=== PATIENT | female | born 1990 | race Hispanic/Latino ===

== ENCOUNTER 2025-04-18 21:58 | Emergency (ER) | payer SELFPAY ==
[~2025-04-18] VITALS: Ht 157.5 cm; Wt 104.3 kg
[2025-04-18 22:29] LABS: BASOPHILS # (AUTO) 0.04 K/uL (0.00-0.20); BASOPHILS % (AUTO) 0.4 % (0.0-5.0); EOSINOPHILS # (AUTO) 0.23 K/uL (0.00-0.70); EOSINOPHILS % (AUTO) 2.3 % (0.0-8.0); HEMATOCRIT 37.9 % (36-48); IMMATURE GRANULOCYTE ABSOLUTE 0.05 K/uL (0-1); LYMPHOCYTES # (AUTO) 2.9 K/uL (1.0-4.8); LYMPHOCYTES % (AUTO) 29.4 % (21.0-51.0); MEAN CORPUSCULAR HEMOGLOBIN 27.9 pg (27.0-33.0); MEAN CORPUSCULAR HGB CONC 32.7 g/dL (32.0-36.0); MEAN CORPUSCULAR VOLUME 85.2 fL (79-99); MONOCYTES # (AUTO) 0.3 K/uL (0.1-1.0); MONOCYTES % (AUTO) 3.5 % (3.0-13.0); NEUTROPHILS # (AUTO) 6.3 K/uL (1.8-7.7); NEUTROPHILS % (AUTO) 63.9 % (40.0-77.0); PLATELET COUNT (AUTO) 294 K/uL (130-400); RED BLOOD CELL COUNT(AUTO) 4.45 MIL/uL (4.00-5.50); RED CELL DISTRIBUTION WIDTH 13.5 % (11.0-15.5); WHITE BLOOD COUNT (AUTO) 9.8 K/uL (4.8-10.8)
[2025-04-18 22:38] LABS: APPEARANCE,URINE CLEAR (CLEAR); BILIRUBIN,URINE NEGATIVE (NEGATIVE); COLOR,URINE COLORLESS (YELLOW); GLUCOSE, URINE (UA) NEGATIVE (NEGATIVE); KETONES,URINE NEGATIVE (NEGATIVE); LEUKOCYTE ESTERASE ,URINE NEGATIVE Leu/uL (NEGATIVE); NITRATE,URINE NEGATIVE (NEGATIVE); OCCULT BLOOD,URINE NEGATIVE (NEGATIVE); PROTEIN,URINE NEGATIVE (NEGATIVE); UROBILINOGEN,URINE 0.2 mg/dL (0.2-1.0)
[2025-04-18 22:40] LABS: CREATININE 0.6 mg/dL (0.5-1.0); POTASSIUM 3.7 mmol/L (3.5-5.1)
[2025-04-18] MEDS: acetaMINOPHEN 500 MG TABLET PO ONE (22:41)
[2025-04-18 22:44] LABS: ADD UA MICROSCOPIC NO
--- NOTE | 2025-04-18 23:09 | HMCIMG ---
US OB <14 WEEKS HISTORY: Back pain COMPARISON: None TECHNIQUE: Obstetrical ultrasound study was performed. FINDINGS: The uterus measures 11.2 x 8.2 x 6 centimeter. Right ovary measures 3.2 x 2.1 x 3.7 centimeter. Left ovary measures 3 x 1.9 x 2.7 centimeter. There is intrauterine saclike structure. In a patient with positive test, differential diagnosis would include early versus ectopic versus missed . Estimated gestational age by sac size is 4 weeks and 4 days. Beta hCG correlation is recommended.. No pole or sac is seen. No fluid is seen in the cul-de-sac. IMPRESSION: 1. There is intrauterine saclike structure. In a patient with positive test, differential diagnosis would include early versus ectopic versus missed . Estimated gestational age by sac size is 4 weeks and 4 days. Beta hCG correlation is recommended..
--- NOTE | 2025-04-18 23:19 | ERN ---
ED Note History of Present Illness Stated Complaint: C/O LOWER BACK PAIN ; 10 WKS Chief Complaint: Back Pain-No Injury Time Seen by MD: 22:21 Dictation: Patient is a 34-year-old female morbid obesity who presented to the ER due to back pain localized in the middle of her back. She also mentioned that she had 1 miscarriage January 2025, and recently she became again, she was told that she was of 7 weeks. Patient comes to the ER to make sure that all her is okay Allergies: Coded Allergies: No Known Drug Allergies (Verified Allergy, 02/07/13) Past Medical History Past Medical History: Diabetes-Type II Surgical History: : 4 Para: 2 Aborts: 1 Review of System Dictation NEGATIVE EXCEPT PER HPI Constitutional: Negative for fever,chills, and weight loss Eyes: Negative for injury, pain,redness, and discharge ENT: Negative for injury,pain or swelling Cardiovascular: denies chest pain, palpitations, and edema Respiratory: Negative for shortness of breath, cough, and wheezing, Abdomen/GI: Negative for abdominal pain, nausea, vomiting, diarrhea, and const ipation Back: Negative for injury and pain : Negative for injury, bleeding and discharge MS/Extremity: Negative for injury and deformity, reports a middle back pain Skin: Negative for rash, and discoloration Neuro: Negative for headache, weakness, numbness, tingling, and seizure Psych: Negative for suicide ideation, homicidal ideation, and hallucinations Initial Vital Sign VS Vital Signs Date Time Temp Pulse Resp B/P (MAP) Pulse Ox O2 Delivery O2 Flow Rate FiO2 04/18/25 22:03 97.5 91 20 130/72 100 Room Air 04/18/25 22:15 0 21 Physical Exam Dictation General: awake, alert, NAD Head/Face: Normocephalic, atraumatic Eyes: PERRL, EOMI, vision at baseline ENT: oral cavity clear, TMs clear, no signs of infection Neck: Trachea midline, supple, no nuchal rigidity Cardiovascular: RRR, normal S1/S2, No MRGs, no JVD Respiratory: CTAB, no respiratory distress, No rales or wheezes Abdomen: Soft , no tender Skin: Warm, dry, normal turgor, no rash MS/Extremity: Pulses equal, no cyanosis, neurovascular intact, FROM Neuro: COAx4, GCS 15, strength 5/5, CN 2-12 intact, normal cerebellar exam, normal gait, Psych: Normal behavior, mood, and affect normal Results (Laboratory/Radiology) Laboratory/Radiology Laboratory Tests Test 04/18/25 22:15 04/18/25 22:23 Urine Color COLORLESS (YELLOW) Urine Appearance CLEAR (CLEAR) Urine pH 7.0 (5.0-8.0) Urine Specific [place] 1.004 (1.001-1.031) Urine Protein NEGATIVE mg/dL (NEGATIVE) Urine Glucose (UA) NEGATIVE mg/dL (NEGATIVE) Urine Ketones NEGATIVE mg/dL (NEGATIVE) Urine Occult Blood NEGATIVE (NEGATIVE) Urine Nitrate NEGATIVE (NEGATIVE) Urine Bilirubin NEGATIVE mg/dL (NEGATIVE) Urine Urobilinogen 0.2 mg/dL (0.2-1.0) Urine Leukocyte Esterase NEGATIVE Cristofer/uL Urine HCG, Qualitative POSITIVE (NEGATIVE) H White Blood Count 9.8 K/uL (4.8-10.8) Red Blood Count 4.45 MIL/uL (4.00-5.50) Hemoglobin 12.4 g/dL (12.0-16.0) Hematocrit 37.9 % (36-48) Mean Corpuscular Volume 85.2 fL (79-99) Mean Corpuscular Hemoglobin 27.9 pg (27.0-33.0) Mean Corpuscular Hemoglobin Concent 32.7 g/dL (32.0-36.0) Red Cell Distribution Width 13.5 % (11.0-15.5) Platelet Count 294 K/uL (130-400) Mean Platelet Volume 10.1 fL (7.5-10.5) Immature Granulocyte % (Auto) 0.5 % (0-1) Neutrophils (%) (Auto) 63.9 % (40.0-77.0) Lymphocytes (%) (Auto) 29.4 % (21.0-51.0) Monocytes (%) (Auto) 3.5 % (3.0-13.0) Eosinophils (%) (Auto) 2.3 % (0.0-8.0) Basophils (%) (Auto) 0.4 % (0.0-5.0) Neutrophils # (Auto) 6.3 K/uL (1.8-7.7) Lymphocytes # (Auto) 2.9 K/uL (1.0-4.8) Monocytes # (Auto) 0.3 K/uL (0.1-1.0) Eosinophils # (Auto) 0.23 K/uL (0.00-0.70) Basophils # (Auto) 0.04 K/uL (0.00-0.20) Absolute Immature Granulocyte (auto 0.05 K/uL (0-1) Nucleated Red Blood Cells 0.0 % (0.0-0.19) Sodium Level 139 mmol/L (136-145) Potassium Level 3.7 mmol/L (3.5-5.1) Chloride Level 104 mmol/L (101-111) Carbon Dioxide Level 28 mmol/L (21-32) Blood Urea Nitrogen 10 mg/dL (7-18) Creatinine 0.6 mg/dL (0.5-1.0) Glomerular Filtration Rate Calc 119 mL/min (>90) Random Glucose 107 mg/dL (70-105) H Total Calcium 9.1 mg/dL (8.5-10.1) Human Chorionic Gonadotropin, Quant 12034 mIU/mL (0-5) H ED Course ED Course Orders Procedure Category Date Status Time Urinalysis Profile LAB 04/18/25 Complete 22:12 ,Urine Test LAB 04/18/25 Complete 22:12 Cbc With Differential LAB 04/18/25 Complete 22:15 Basic Metabolic Panel LAB 04/18/25 Complete 22:15 Hcg,Quantitative LAB 04/18/25 Complete 22:15 Us Ob <14 Weeks US 04/18/25 Resulted 22:15 Acetaminophen 500mg PHA 04/18/25 Complete Tab (Tylenol 500mg T 23:00 Current Medications Medications (Trade) Dose Ordered Sig/Mervin Route PRN Reason Start Time Stop Time Status Last Admin Dose Admin Acetaminophen (TYLenol 500MG TAB) 500 mg ONCE ONCE PO 04/18/25 23:00 04/18/25 23:01 DC 04/18/25 22:41 Vital Signs Date Time Temp Pulse Resp B/P (MAP) Pulse Ox O2 Delivery O2 Flow Rate FiO2 04/18/25 22:15 97.9 92 18 130/45 100 Room Air* 0 21 04/18/25 22:03 97.5 91 20 130/72 100 Room Air Medical Decision Making MDM 34-year-old female with a history of 7 weeks of came to the ER due to back pain. Denies fever or chills. No urinary symptoms. No hematuria. No vaginal bleeding. workup, including ultrasound. hcg [id number] US OB <14 WEEKS HISTORY: Back pain COMPARISON: None TECHNIQUE: Obstetrical ultrasound study was performed. FINDINGS: The uterus measures 11.2 x 8.2 x 6 centimeter. Right ovary measures 3.2 x 2.1 x 3.7 centimeter. Left ovary measures 3 x 1.9 x 2.7 centimeter. There is intrauterine saclike structure. In a patient with positive test, differential diagnosis would include early versus ectopic versus missed . Estimated gestational age by sac size is 4 weeks and 4 days. Beta hCG correlation is recommended.. No pole or sac is seen. No fluid is seen in the cul-de-sac. IMPRESSION: 1. There is intrauterine saclike structure. In a patient with positive test, differential diagnosis would include early versus ectopic versus missed . Estimated gestational age by sac size is 4 weeks and 4 days. Beta hCG correlation is recommended.. PATIENT MUST FOLLOW UP WITH HER PCP NO ACUTE FINDINGS FOUND ON THE LABS OR IN THE OBSTETRICAL ULTRASOUND. DX & DISP Disposition: Discharge Departure Impression: Primary Impression: Additional Impression: Back pain Condition: Stable Scripts Acetaminophen (Tylenol) 500 Mg Tab 1 TAB PO Q6HPRN PRN for pain or fever for 5 Days, #20 TAB 0 Refills Prov: CRYSTAL ARITA MD 04/18/25 Additional Instructions: RETURN TO ER FOR ANY ACUTE OR WORSENING SYMPTOMS. FOLLOW-UP IN 1-2 DAYS WITH PRIMARY PROVIDER FOR RECHECK OF TODAY'S SYMPTOMS. Referrals: SELF,REFERRAL (PCP) CRYSTAL ARITA MD April 18, 2025 23:19
[2025-04-18] MEDS ORDERED: ACET-66 PO (23:59)
[2025-04-19 00:22] VITALS: BP 129/52; PULSE 86; RESP 18; TEMP 98.2; O2SAT 100
== END 2025-04-19 00:23 | disposition home or self-care (01) ==
LOC: EDH 21:58
DX: O26.891 Other specified pregnancy related conditions, first trimester (principal); M54.50 Low back pain, unspecified; R10.2 Pelvic and perineal pain; O24.111 Pre-existing type 2 diabetes mellitus, in pregnancy, first trimester; Z3A.10 10 weeks gestation of pregnancy; Z98.890 Other specified postprocedural states
CPT/HCPCS: 36415; 76801; 80048; 81003; 81025; 84702; 85025; 99284

== ENCOUNTER 2025-04-24 19:54 | Emergency (ER) | payer SELFPAY ==
[~2025-04-24 19:54] MED LIST: ACET-66 PO
--- NOTE | 2025-04-24 19:55 | NUR ---
CALLED FOR PT IN LOBBY FOR TRIAGE; NO RESPONSE; PT NOT FOUND IN LOBBY.
--- NOTE | 2025-04-24 20:15 | NUR ---
CALLED FOR PT IN LOBBY FOR TRIAGE; NO RESPONSE.
== END 2025-04-24 20:16 | disposition left against medical advice (07) ==
LOC: EDH 19:54
DX: O03.9 Complete or unspecified spontaneous abortion without complication (principal); Z53.21 Procedure and treatment not carried out due to patient leaving prior to being seen by health care provider

== ENCOUNTER 2025-06-09 21:36 | Emergency (ER) | payer MEDICAID ==
[~2025-06-09] VITALS: Ht 157.5 cm; Wt 106.6 kg
[2025-06-09 22:14] LABS: IMMATURE GRANULOCYTE ABSOLUTE 0.03 K/uL (0-1); NUCLEATED RED BLOOD CELLS 0.0 % (0.0-0.19); PLATELET COUNT (AUTO) 279 K/uL (130-400); RED BLOOD CELL COUNT(AUTO) 4.21 MIL/uL (4.00-5.50); RED CELL DISTRIBUTION WIDTH 14.6 % (11.0-15.5); WHITE BLOOD COUNT (AUTO) 7.6 K/uL (4.8-10.8)
[2025-06-09 22:23] LABS: CREATININE 0.7 mg/dL (0.5-1.0); GLOMERULAR FILTR. RATE CALC 115.0 mL/min (>90); GLUCOSE,RANDOM 107.0 mg/dL (70-105); SODIUM SERUM 141.0 mmol/L (136-145); UREA NITROGEN, BLOOD 13.0 mg/dL (7-18)
--- NOTE | 2025-06-09 22:30 | ERN ---
ED Note History of Present Illness Stated Complaint: HEAD INJURY, HEADACHE Chief Complaint: Head Injury Time Seen by MD: 21:41 Dictation: This is a 34-year-old female who presented to the emergency room complaining of left-sided frontal headache and injury to the head. Apparently they were trying to put up a canopy and 1 of the poles which is 4 in in diameter it fell and hit her head in the left frontal area on 06/07/2025. 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 She began experiencing headache in the area where she got injured and she came in for evaluation no nausea vomitings no dizziness. Patient apparently took Motrin 800 mg p.o. at 3:00 p.m. prior to ER visit. Temperature 98.8 pulse 96 respirations 20 blood pressure 131/68 with a pulse oximetry of 100% on room air Her chronic medical problem includes diabetes type 2 and morbid obesity with a BMI of 43 Allergies: Coded Allergies: No Known Drug Allergies (Verified Allergy, 02/07/13) Home Meds Active Scripts Ketorolac Tromethamine (Toradol) 10 Mg Tab, 10 MG PO QID for pain for 5 Days, #20 TAB 0 Refills Prov:CHARLINE BOYER MD 06/10/25 Acetaminophen (Tylenol) 500 Mg Tab, 1 TAB PO Q6HPRN PRN for pain or fever for 5 Days, #20 TAB 0 Refills Prov:CRYSTAL ARITA MD 04/18/25 Past Medical History Past Medical History: Diabetes-Type II Surgical History: Family History: Negative LMP: Jun 03, 2025 : 4 Para: 3 Aborts: 1 RN Note Reviewed/Agreed w/PFSH: Yes Review of System Dictation Constitutional: Negative for fever,chills, and weight loss Eyes: Negative for injury, pain,redness, and discharge ENT: Negative for injury,pain or swelling Cardiovascular: Negative for chest pain, palpitations, and edema Respiratory: Negative for shortness of breath, cough, and wheezing, Abdomen/GI: Negative for abdominal pain, nausea, vomiting, diarrhea, and constipation Back: Negative for injury and pain : Negative for injury, bleeding and discharge MS/Extremity: Negative for injury and deformity Skin: Negative for rash, and discoloration Neuro: Positive for frontal headache, denies weakness, numbness, tingling, and seizure Psych: Negative for suicide ideation, homicidal ideation, and hallucinations Initial Vital Sign VS Vital Signs Date Time Temp Pulse Resp B/P (MAP) Pulse Ox O2 Delivery O2 Flow Rate FiO2 06/09/25 21:37 98.8 96 20 131/68 100 Nasal Cannula Physical Exam Dictation General: awake, alert, NAD Head/Face: Normocephalic, atraumatic I do not appreciate any obvious lacerations, scalp hematoma or abrasions. Eyes: PERRL, EOMI, vision at baseline ENT: oral cavity clear, TMs clear, no signs of infection Neck: Trachea midline, supple, no nuchal rigidity Cardiovascular: RRR, normal S1/S2, No MRGs, no JVD Respiratory: CTAB, no respiratory distress, No rales or wheezes Abdomen: Soft, non-tender, non-distended, normal bowel sounds, no guarding or rebound. Skin: Warm, dry, normal turgor, no rash MS/Extremity: Pulses equal, no cyanosis, neurovascular intact, FROM Neuro: COAx4, GCS 15, strength 5/5, CN 2-12 intact, normal cerebellar exam, normal gait, Psych: Normal behavior, mood, and affect normal Extremities-trace edema without any palpable cords, Homans sign is negative Results (Laboratory/Radiology) Laboratory/Radiology Laboratory Tests Test 06/09/25 22:07 White Blood Count 7.6 K/uL (4.8-10.8) Red Blood Count 4.21 MIL/uL (4.00-5.50) Hemoglobin 11.7 g/dL (12.0-16.0) L Hematocrit 36.7 % (36-48) Mean Corpuscular Volume 87.2 fL (79-99) Mean Corpuscular Hemoglobin 27.8 pg (27.0-33.0) Mean Corpuscular Hemoglobin Concent 31.9 g/dL (32.0-36.0) L Red Cell Distribution Width 14.6 % (11.0-15.5) Platelet Count 279 K/uL (130-400) Mean Platelet Volume 10.7 fL (7.5-10.5) H Immature Granulocyte % (Auto) 0.4 % (0-1) Neutrophils (%) (Auto) 59.0 % (40.0-77.0) Lymphocytes (%) (Auto) 33.1 % (21.0-51.0) Monocytes (%) (Auto) 3.7 % (3.0-13.0) Eosinophils (%) (Auto) 3.4 % (0.0-8.0) Basophils (%) (Auto) 0.4 % (0.0-5.0) Neutrophils # (Auto) 4.5 K/uL (1.8-7.7) Lymphocytes # (Auto) 2.5 K/uL (1.0-4.8) Monocytes # (Auto) 0.3 K/uL (0.1-1.0) Eosinophils # (Auto) 0.26 K/uL (0.00-0.70) Basophils # (Auto) 0.03 K/uL (0.00-0.20) Absolute Immature Granulocyte (auto 0.03 K/uL (0-1) Nucleated Red Blood Cells 0.0 % (0.0-0.19) Sodium Level 141 mmol/L (136-145) Potassium Level 3.1 mmol/L (3.5-5.1) L Chloride Level 101 mmol/L (101-111) Carbon Dioxide Level 31 mmol/L (21-32) Blood Urea Nitrogen 13 mg/dL (7-18) Creatinine 0.7 mg/dL (0.5-1.0) Glomerular Filtration Rate Calc 115 mL/min (>90) Random Glucose 107 mg/dL (70-105) H Total Calcium 8.8 mg/dL (8.5-10.1) Serum Test, Qualitative NEGATIVE (NEGATIVE) Labs Reviewed?: Yes ED Course ED Course Orders Procedure Category Date Status Time Testing, LAB 06/09/25 Complete Serum Hcg 21:59 Cbc With Differential LAB 06/09/25 Complete 21:59 Basic Metabolic Panel LAB 06/09/25 Complete 21:59 Ct Head/Brain W/O CT 06/09/25 Resulted Contrast 21:59 Potassium Bicarb/Cit PHA 06/10/25 Complete Ac 25meq (K-Lyte Ta 01:00 Current Medications Medications (Trade) Dose Ordered Sig/Mervin Route PRN Reason Start Time Stop Time Status Last Admin Dose Admin Potassium Bicarbonate (K-Lyte Tablet Eff 25 Meq Tablet.eff) 50 meq ONCE ONCE PO 06/10/25 01:00 06/10/25 01:01 DC 06/10/25 00:58 Vital Signs Date Time Temp Pulse Resp B/P (MAP) Pulse Ox O2 Delivery O2 Flow Rate FiO2 06/09/25 21:37 98.8 96 20 131/68 100 Nasal Cannula We will perform diagnostic labs, advanced imaging and administer medications according to the patient's complaint. Once the results are available, will review and personally interpreted the labs to rule out any acute life- threatening emergency the trach require immediate intervention and treatment. I will then re-evaluate the patient after treatment and diagnostic exams have return to determine whether the patient requires any further testing, can safely be discharged home or need further admission to hospital for additional treatment and evaluation. 10:54 p.m. labs reviewed CBC 11.7 hemoglobin BNP 7 showed a potassium of 3.1 urine test is negative CT scan of the head pending. 1:[address] scan of the head without contrast finally has been reported no evidence of any acute intracranial hemorrhage or skull fractures noted. I updated the patient on all the available information and unclear reason for hypokalemia and she will be discharged to home after potassium supplementation. Medical Decision Making MDM Differential diagnosis: Concussion, hairline skull fracture, subdural hematoma, intracranial hemorrhage, postconcussive headache Rationale: Tests considered and ordered secondary to shared decision making include: Previous outside records reviewed: Old ER visits. Risk of complication and/or morbidity or mortality of patient management: None Medications-Per medication reconciliation Need for hospitalization: Patient does not meet criteria for hospitalization. Need for emergency major/minor surgery: No There are no social concerns with this patient. Prescription drug management Prescriptions will include symptomatic care Patient's prior external medical records from other ER visits were reviewed by christ osborne as indicated. Prior testing and results from previous visits were reviewed. Prior tests were taken into account with medical decision making and resource utilization, independent historian/historians were used to obtain complete medical history. I independently interpreted the test that were performed, results were reviewed by me and considered findings on radiology if ordered. Medical management and examination interpretation discussions were had by me with other qualified healthcare professionals as indicated for the patient's care. Problem List Problem List: (1) Closed head injury (2) Headache (3) Hypokalemia DX & DISP Disposition: Discharge Departure Impression: Primary Impression: Closed head injury Additional Impressions: Headache, Hypokalemia Condition: Stable Scripts Ketorolac Tromethamine (Toradol) 10 Mg Tab 10 MG PO QID for pain for 5 Days, #20 TAB 0 Refills Prov: CHARLINE BOYER MD 06/10/25 Additional Instructions: Patient and the caregiver have been informed of all the diagnostic tests and the imaging conducted during the today's visit to the emergency room and has verbalized understanding of the results I have personally reviewed and interp reted all diagnostic exams performed here in the ER today as well as the vital signs documented by the nursing staff. The patient is now being discharged to home and should follow up with the primary care physician or the specialist as directed by the ER staff. Follow-up with primary care provider in 1 to 2 days. Take medications as directed here in the emergency room. Okay to continue home medications unless otherwise discussed during your visit in the emergency room today. Return to your nearest emergency room if symptoms worsen or if there is no improvement. Call 911 if you need immediate assistance. Take Tylenol or Motrin [id number] as needed and if no contraindications are present. Increase oral hydration. A wound culture or urine culture was ordered here in the emergency room department please follow-up with primary care provider and advise them to get repeat ports from our facility. If you had any Jayson wrap/splints that were applied here, please do not remove them until you see your primary care or specialty. Referrals: CASSIUS THOMAS MD (PCP) CHARLINE BOYER MD Jun 09, 2025 22:29
--- NOTE | 2025-06-10 00:07 | HMCIMG ---
EXAM: Non-contrast CT examination of the Brain CLINICAL HISTORY: Closed head injury. TECHNIQUE: Thin collimated axial CT images of the brain were obtained with sagittal and coronal reformatted images also submitted. CT scan is done according to ALARA (As Low as Reasonably Achievable). CONTRAST USED: None. COMPARISON: None provided. FINDINGS: No acute intracranial abnormality is present. No acute cortical infarction, hemorrhage, mass, or mass effect. No hydrocephalus or abnormal extra-axial fluid collections. The posterior fossa is unremarkable. The skull base and calvarium are intact. The included portions of the paranasal sinuses and mastoid air cells are clear. IMPRESSION: No acute intracranial abnormality is present. /[place]
[2025-06-10] MEDS ORDERED: KETO10 PO (00:45)
[2025-06-10 01:13] VITALS: BP 139/61; PULSE 81; RESP 19; TEMP 97.9; O2SAT 98
== END 2025-06-10 01:21 | disposition home or self-care (01) ==
LOC: EDH 21:36
DX: S09.90XA Unspecified injury of head, initial encounter (principal); E11.9 Type 2 diabetes mellitus without complications; E87.6 Hypokalemia; Z79.899 Other long term (current) drug therapy; Z98.890 Other specified postprocedural states; W22.8XXA Striking against or struck by other objects, initial encounter; Y93.89 Activity, other specified; Y92.89 Other specified places as the place of occurrence of the external cause; Y99.8 Other external cause status
CPT/HCPCS: 36415; 70450; 80048; 84703; 85025; 99285